=== PATIENT | male | born 1970 | race Caucasian/White ===

== ENCOUNTER 2022-02-09 09:16 | Emergency (ER) | payer OTHER, SELFPAY ==
[2022-02-09 09:24] VITALS: BP 153/106; PULSE 69; RESP 18; TEMP 36.4; O2SAT 98; BMI 28.5
--- NOTE | 2022-02-09 09:33 | CRLHL7_ITS ---
For Patients: As a result of the Century Cures Act, medical imaging exams and procedure reports are released immediately into your electronic medical record. You may view this report before your referring provider. If you have questions, please contact your health care provider. Indication: Thoracic Pain Technique: Volumetric multidetector CT images of the thoracic spine were obtained without the administration of IV contrast. Comparison: None available. Findings: The thoracic vertebral body heights are grossly maintained with minimal endplate Schmorl`s defects. There is mild straightening of the normal thoracic kyphosis without evidence of significant spondylolisthesis. There is mild multilevel degenerative disc disease with disc height loss and marginal osteophyte formation. There is no significant spinal canal stenosis or neural foraminal narrowing. There is no displaced fracture or dislocation. There is minimal basilar atelectasis and parenchymal scar. Impression: [id number] degenerative changes of the thoracic spine without evidence of acute osseous abnormality. Please note that all CT scans at this facility use dose modulation, iterative reconstruction, and/or weight-based dosing when appropriate to reduce radiation dose to as low as reasonably achievable. Dictated by Malvin Corral MD @ 02/09/2022 10:05:18 AM (Electronically Signed)
--- NOTE | 2022-02-09 09:35 | ED_ITS ---
HPI - General Adult General Time Seen by Provider: 09:35 Date Seen: 02/09/22 Chief complaint: Back Injury/Pain Stated complaint: Upper back pain Time Seen by Provider: 02/09/22 09:21 Source: patient Mode of arrival: ambulatory Limitations: no limitations History of Present Illness HPI narrative: Patient is a 51-year-old white male who presents with thoracic back pain. He notices that it has been significant for the last few days, worse yesterday and today. 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 The patient reports no fevers, chills, cough, COVID symptoms, chest pain anteriorly, shortness of breath except when he gets severe pain in that thoracic region. He describes it is medial to the tip of the scapula and in his thoracic spine. He has had this symptom about a year ago that was similar in quite severe, an x-ray was unremarkable and it seemed to improve. He denies significant trauma or injury although he has an active job as mention. No leg swelling, no edema, no bleeding or clotting problems. Patient does take blood pressure medication . Related Data Home Medications Medication Instructions Recorded Confirmed amlodipine 10 mg tablet 10 mg PO QDAY 12/08/21 02/01/22 multivitamin 1 tab PO QDAY 12/08/21 02/01/22 Previous Rx's Medication Instructions Recorded sildenafil 100 mg tablet 100 mg PO QDAY PRN sexual activity 12/10/21 #6 tabs methylprednisolone 4 mg tablets in See Rx Instructions PO PER PKG DIR 02/01/22 a dose pack (Medrol (Tyler)) #21 ea tizanidine 4 mg tablet 4 mg PO Q8H PRN muscle spasticity 02/01/22 #30 tabs tramadol 50 mg tablet 50 mg PO TID #90 tabs 02/01/22 oxycodone 5 mg tablet 5 mg PO Q4H PRN pain #30 tabs 02/07/22 Allergies Allergy/AdvReac Type Severity Reaction Status Date / Time lisinopril Allergy Intermediate Cough Verified 02/01/22 13:48 Review of Systems Status of ROS: Reports: 10 or more systems reviewed and unremarkable except as noted in History and below PFSH PFSH Surgical History Status post vasectomy Social History Smoking Status: Never smoker Do you use any of these nicotine containing products: None How often do you have a drink containing alcohol: monthly or less AUDIT-C Alcohol total score: 1 Non-prescribed substance use: denies use Exam Narrative: Exam Narrative: Objective: Patient is alert or x3 in mild distress and discomfort is back Vital signs show slightly elevated blood pressure HEENT is unremarkable neck is supple Midthoracic paravertebral muscles inside the right shoulder blade or tender and it recreates the pain that is being experienced. He is definitely worse with motion or sitting up or deep breathing but it is localized to palpable discomfort in his chest wall Low back exam is unremarkable Extremities are no edema neurologic nonfocal upper extremities Good peripheral perfusion Skin is warm and dry Const: Vital Signs, click to edit/add: Vital Signs - 24 hr 02/09/22 09:24 02/09/22 10:41 Temperature 97.5 F L Pulse Rate [Left P ulse Oximeter] 69 76 Respiratory Rate 18 18 Blood Pressure [Ri ght Upper Arm] 153/106 H 146/101 H Pulse Oximetry 98 96 Oxygen Delivery Me thod Room Air Room Air Course Vital Signs Vital signs: Initial Vital Signs Temperature 97.5 F L 02/09/22 09:24 Temperature Source Temporal Artery Scan 02/09/22 09:24 Pulse Rate 69 02/09/22 09:24 Respiratory Rate 18 02/09/22 09:24 Blood Pressure 153/106 H 02/09/22 09:24 Blood Pressure Mean 121 02/09/22 09:24 Blood Pressure Position Sitting 02/09/22 09:24 Pulse Oximetry 98 02/09/22 09:24 Oxygen Delivery Method 02/09/22 09:24 Vital Signs Temperature 97.5 F L 02/09/22 09:24 Pulse Rate 69 02/09/22 09:24 Respiratory Rate 18 02/09/22 09:24 Blood Pressure 153/106 H 02/09/22 09:24 Pulse Oximetry 98 02/09/22 09:24 Oxygen Delivery Method 02/09/22 09:24 Temperature 97.5 F L 02/09/22 09:24 Pulse Rate 76 02/09/22 10:41 Respiratory Rate 18 02/09/22 10:41 Blood Pressure 146/101 H 02/09/22 10:41 Pulse Oximetry 96 02/09/22 10:41 Oxygen Delivery Method 02/09/22 10:41 Medical Decision Making [facility] Narrative Medical decision making narrative: The patient has had thoracic back pain in the past, given that this is recurrent, I think a CT scan would be appropriate to rule out any bony injury, disc issue, infectious issue. The patient will also get a CBC CRP and ER profile. Will get 10 mg IM morphine for pain control. The patient has taken tramadol in the past for low back discomfort and takes this as needed. Addendum: Patient feels better with his IM morphine, his thoracic MRI shows degenerative change but no marked abnormality, laboratory studies are reassuring. He just recent completed a Medrol Dosepak, so I will review institute that but he can uses tramadol for discomfort, and also Aleve 2 twice a day would be reasonable. I would recommend follow-up with Dr. Rock in 2 days, and follow up with [facility]'s physical therapy with on a referral basis for back treatment Lab Data Labs: Lab Results 02/09/22 02/09/22 Range/Units 09:42 09:42 WBC 7.32 (4.50-11.00) K/uL RBC 4.94 (4.30-5.90) m/uL Hgb 15.3 (13.5-17.5) gm/dL Hct 45.3 (37.0-53.0) % MCV 92 (80-100) fL MCH 31 (26-34) pg MCHC 34 (32-36) gm/dL RDW Coeff of Murali 12.4 (11.5-15.5) % Plt Count 182 (140-440) K/uL Neut % (Auto) 59.3 (42.0-72.0) % Lymph % (Auto) 31.6 (20-44) % Garza % (Auto) 6.3 (0.0-11.0) % Eos % (Auto) 1.9 (0.0-7.0) % Baso % (Auto) 0.4 (0.0-3.0) % Neut # (Auto) 4.34 (1.7-7.0) K/uL Lymph # (Auto) 2.31 (0.90-2.90) K/uL Garza # (Auto) 0.50 (0.00-0.90) K/UL Eos # (Auto) 0.14 (0.00-0.50) K/uL Baso # (Auto) 0.03 (0.00-0.30) K/uL Abs Immat Gran (auto) 0.04 (0.00-0.30) K/uL Sodium 138 (135-149) mmol/L Potassium 4.4 (3.6-5.1) mmol/L Chloride 101 (96-114) mmol/L Carbon Dioxide 30 (20-32) mmol/L BUN 23 (7-30) mg/dL Creatinine 1.2 (0.5-1.5) mg/dL Estimated Creat Clear 79.04 Estimated GFR 73 ml/min Glucose 93 (60-115) mg/dL Calcium 8.9 (8.4-10.6) mg/dL C-Reactive Protein < 0.5 L (0.5-1.0) mg/dL Discharge Plan Discharge Clinical Impression: Back pain, thoracic Patient Disposition: Home w/ Parent or Adult Condition: Improved Additional Instructions: Light activity, Aleve 2 twice a day over the next 5-7 days, ice to the back 3 4 x 5 to 10 minutes at a time if he can, follow-up with Dr. Rock within the next 2 days, recommend physical therapy course with [facility] Kwok like well. Prescriptions: No Action tramadol 50 mg tablet 50 mg PO TID Qty: 90 1RF tizanidine 4 mg tablet 4 mg PO Q8H PRN (Reason: muscle spasticity) Qty: 30 1RF methylprednisolone [Medrol (Tyler)] 4 mg tablets,dose pack See Rx Instructions PO PER PKG DIR Qty: 21 0RF Rx Instructions: PO PER PKG DIR amlodipine 10 mg tablet 10 mg PO QDAY multivitamin Tablet 1 tab PO QDAY sildenafil 100 mg tablet 100 mg PO QDAY PRN (Reason: sexual activity) Qty: 6 11RF Rx Instructions: administer 30 minutes to 4 hours before activity oxycodone 5 mg tablet 5 mg PO Q4H PRN (Reason: pain) Qty: 30 0RF Follow Up/Referrals: Tip Kirk MD [Primary Care Provider] - Stand Alone Forms: MyHealth Info Instructions
[2022-02-09 09:49] LABS: Basophils Absolute Auto 0.03 K/uL (0.00-0.30); Basophils Percent Auto 0.4 % (0.0-3.0); Eosinophils Absolute Auto 0.14 K/uL (0.00-0.50); Eosinophils Percent Auto 1.9 % (0.0-7.0); Hematocrit 45.3 % (37.0-53.0); Hemoglobin* 15.3 gm/dL (13.5-17.5); Immature Granulocytes Abs Auto 0.04 K/uL (0.00-0.30); Lymphocytes Absolute Auto 2.31 K/uL (0.90-2.90); Lymphocytes Percent Auto 31.6 % (20-44); Mean Corpuscular HGB Conc 34 gm/dL (32-36); Mean Corpuscular Hemoglobin 31 pg (26-34); Mean Corpuscular Volume 92 fL (80-100); Monocytes Percent Auto 6.3 % (0.0-11.0); Neutrophils Absolute Auto 4.34 K/uL (1.7-7.0); Neutrophils Percent Auto 59.3 % (42.0-72.0); Platelet Count* 182 K/uL (140-440); RDW Coefficient of Variation % 12.4 % (11.5-15.5); Red Blood Count 4.94 m/uL (4.30-5.90); White Blood Count* 7.32 K/uL (4.50-11.00)
[2022-02-09 09:52] LABS: Slide Review Reflex No
[2022-02-09 10:09] LABS: Chloride* 101 mmol/L (96-114); Potassium* 4.4 mmol/L (3.6-5.1); Sodium* 138 mmol/L (135-149)
[2022-02-09 10:12] LABS: Creatinine* 1.2 mg/dL (0.5-1.5); Est. Creatinine Clearance* 79.04; Estimated Glomerular Filt Rate 73 ml/min
[2022-02-09 10:13] LABS: Blood Urea Nitrogen* 23 mg/dL (7-30); Carbon Dioxide* 30 mmol/L (20-32); Glucose* 93 mg/dL (60-115)
[2022-02-09 10:14] LABS: Calcium* 8.9 mg/dL (8.4-10.6)
[2022-02-09 10:18] LABS: C Reactive Protein* < 0.5 mg/dL (0.5-1.0)
[2022-02-09 10:41] VITALS: BP 146/101; PULSE 76; RESP 18; O2SAT 96
== END 2022-02-09 11:07 | disposition home or self-care (01) ==
PROVIDERS: Emergency Provider Family Medicine; PCP Family Medicine
DX: M54.6 Pain in thoracic spine (principal)
CPT/HCPCS: 36415; 72128; 80048; 85025; 86140; 96372; 99283; 99284

== ENCOUNTER 2022-02-16 07:02 | Outpatient (CLI) | payer OTHER, SELFPAY ==
--- NOTE | 2022-02-16 07:15 | MR_ITS ---
[facility] [address] [facility] [address] Phone:?[phone] Fax:?[phone] Referring Physician Information: Atilio Kirk M.D. [address] [facility] [address] Phone:?[phone] Fax:?[phone] Patient:?Guille Stephens D.O.B:?1970 Sex:?Male Phone:?[phone] [facility] MRN:?[id number] Exam Date:?02/16/2022 ? EXAM: MRI OF THE CERVICAL SPINE WITHOUT CONTRAST CLINICAL INFORMATION: Upper back and right periscapular pain. TECHNICAL INFORMATION: Sagittal fast spin-echo T2-weighted, GRE, T1-weighted, STIR as well as axial fast spin-echo T2-weighted and GRE images of the cervical spine were obtained on a 1.5 Radha MRI scanner.?SEDATION:?None.?CONTRAST:?None. INTERPRETATION: No comparison. Normal alignment. No acute fracture. C1-2 articulations and bony craniocervical junction are unremarkable. Cervical cord maintains normal signal and the imaged posterior fossa structures and paraspinal soft tissue structures are unremarkable. Annular bulging is demonstrated at C4-5 through C2-3. T1-2 through C5-6: No central stenosis or cord compression. Mild left C7-T1 facet arthrosis with bilateral T1-2, left C6-7 and left C5-6 facet hypertrophy. Mild to moderate bilateral C6-7 and C5-6 and uncinate spurring. Chronic, mild to moderate left/mild right C6-7 and mild left C5-6 foraminal narrowing. C4-5: Annular bulging is slightly more prominent right posterolaterally without central stenosis or cord compression. Facets are unremarkable, but there is mild to moderate bilateral uncinate spurring with mild right chronic foraminal narrowing. C3-4: No central stenosis or cord compression. Mild left facet hypertrophy with mild left uncinate spurring and mild to moderate left chronic foraminal narrowing. C2-3: No central stenosis or cord compression. Mild right facet arthrosis and uncinate spurring with mild right chronic foraminal narrowing. T1 and T2 prolongation marrow signal changes subtend the right facet joint. CONCLUSION: Multilevel degenerative cervical spondylosis with the following notable findings: 1. Mild right C2-3 and left C7-T1 facet arthrosis with additional findings at the right C2-3 facet joint consistent with ongoing synovitis. 2. No disc herniation, significant central stenosis, acute fracture, cord compression or intrinsic cord lesion. 3. Multilevel chronic foraminal narrowing that varies from mild to mild/moderate without neural compression as detailed above. SC Electronically signed on 02/16/2022 11:07:00 AM by Napoleon Gayle M.D.
== END 2022-02-16 07:03 | disposition home or self-care (01) ==
LOC: MRI 07:03
PROVIDERS: PCP Family Medicine; Visit Provider Family Medicine
DX: M54.9 Dorsalgia, unspecified (principal); M65.88 Other synovitis and tenosynovitis, other site; M47.9 Spondylosis, unspecified; M54.2 Cervicalgia; M54.6 Pain in thoracic spine
CPT/HCPCS: 72141

== ENCOUNTER 2022-05-11 07:02 | Outpatient (CLI) | payer OTHER, SELFPAY ==
--- NOTE | 2022-05-11 07:15 | MR_ITS ---
[address] [address] Phone:?[phone] Fax:?[phone] Referring Physician Information: Sherrie Arce N.P. [address] [facility] [address] Phone:?[phone] Fax:?[phone] Patient:?Guille Stephens D.O.B:?1970 Sex:?Male Phone:?[phone] [facility] MRN:?[id number] Exam Date:?05/11/2022 ? EXAM: MR LUMBAR SPINE WITHOUT CONTRAST CLINICAL INFORMATION: 51-year-old male with low back pain radiating into the right groin. COMPARISON: None. TECHNICAL INFORMATION: Sagittal T2, sagittal T1, sagittal STIR, axial T2, axial T1-weighted MR images of the lumbar spine on a 1.5 Radha magnet. CONTRAST: None. SEDATION: None. INTERPRETATION: Lordotic alignment of 5 nonrib-bearing lumbar vertebral bodies with shallow chronic Scheuermann-type endplate Schmorl's nodes at L1-2 and L2-3, scattered degenerative endplate disruption/mild edema greatest at L5-S1, chronic bilateral L5 spondylolysis, no vertebral collapse, acute fracture, or destructive osseous lesion. Normal pre and paravertebral soft tissues. Conus medullaris positioned at lower L1, with normal configuration of the terminal nerve roots. L5-S1: Advanced disc degeneration, greater on the right, with 1-2 mm spondylolisthesis, diffuse annular bulge/endplate ridging with localized prominence in the right greater than left foramina, and moderate to severe right/moderate left foraminal stenosis with exiting right greater than left L5 root impingement. L4-5: Moderate disc degeneration, 2 mm retrolisthesis, central annular fissure/2 mm AP slightly caudally extruded dorsal disc herniation, normal facets, and mild bilateral foraminal stenosis. L3-4: Moderate disc degeneration, dorsal to left foraminal bulge, normal facets, and mild left foraminal stenosis. L2-3: Mild disc degeneration, left foraminal annular fissure, dorsal to foraminal annular bulge, and superimposed focal left posterolateral annular fissure/3 mm AP slightly cranially extruded disc herniation causing moderate left subarticular stenosis with descending left L3 root impingement. Normal facets and mild left greater than right foraminal stenosis. L1-2: Moderate disc degeneration, mild diffuse annular bulge, superimposed 1-2 mm AP left posterolateral protrusion, normal facets, mild left subarticular stenosis/descending left L2 root encroachment, and mild bilateral foraminal stenosis. T12-L1: Focal right paracentral annular fissure/1-2 mm AP protrusion without central or subarticular stenosis. Normal facets and patent foramina. CONCLUSION: Multilevel lumbar degenerative changes with chronic bilateral L5 spondylolysis and specifics as follows: 1. L5-S1 moderate to severe right and moderate left foraminal stenosis with exiting right greater than left L5 root impingement in the setting of mild grade 1 lytic spondylolisthesis. 2. L2-3 moderate subarticular impingement of the descending left L3 root by an extruded disc herniation. 3. L1-2 mild subarticular encroachment of the descending left L2 root by a shallow disc protrusion. 4. No vertebral collapse, acute fracture, or destructive osseous lesion. PDB Electronically signed on 05/14/2022 9:59:00 AM by Michael Garcia M.D.
== END 2022-05-11 07:03 | disposition home or self-care (01) ==
LOC: MRI 07:02
PROVIDERS: PCP Family Medicine; Visit Provider Nurse Practitioner Adult Health
DX: M54.50 Low back pain, unspecified (principal); M48.07 Spinal stenosis, lumbosacral region; M51.26 Other intervertebral disc displacement, lumbar region
CPT/HCPCS: 72148